=== PATIENT | male | born 1945 | race Caucasian/White ===

== ENCOUNTER 2018-02-20 20:28 | Emergency (ER) | payer MEDICARE, OTHER ==
[~2018-02-20] VITALS: Ht 180.3 cm; Wt 129.3 kg
--- OUTSIDE RECORDS SUMMARY | ~2018-02-20 | XMS | Clinical Summary ---
Demographics + + + | Address | [address] | | | [place] [address] | + + + | Home Phone | | + + + | Preferred Language | Unknown | + + + | Marital Status | | + + + | Jehovah'S Witness Affiliation | Unknown | + + + | Race | Unknown | + + + | Ethnic Group | Unknown | + + + Author + + + | Author | Located Within [facility] | | | and [place] | + + + | Organization | Located Within [facility] | | | and [place] | + + + | Address | Unknown | + + + | Phone | Unavailable | + + + Support + + +---------+ + | Name | Relationship | Address | Phone | + + +---------+ + | Gisela Steel | Unknown | | + + +---------+ + Care Team Providers + +------+ + | Care Ball Point Splitter Name | Role | Phone | + +------+ + | Morro Mcdaniel MD | PP | Unavailable | + +------+ + Allergies + + + + + + | Active Allergy | Reactions | Severity | Noted | Comments | | | | | Date | | + + + + + + | Sulfa Antibiotics | Swelling | Medium | 09/28/19 | | | | | | 11 | | + + + + + + Current Medications + + +--------+---------+------+------+-------+ | Prescription | Sig. | Disp. | Refills | Star | End | Statu | | | | | | t | Date | s | | | | | | Date | | | + + +--------+---------+------+------+-------+ | buPROPion | Take 150 mg by mouth | | | | | Activ | | (WELLBUTRIN SR) 200 | 2 times daily. | | | | | e | | MG 12 hr tablet | | | | | | | + + +--------+---------+------+------+-------+ | insulin glargine | Inject 80 Units | | | | | Activ | | (LANTUS) 100 | under the skin | | | | | e | | units/mL injection | nightly. | | | | | | + + +--------+---------+------+------+-------+ | nabumetone | Take 500 mg by mouth | | | | | Activ | | (RELAFEN) 500 mg | 2 times daily. | | | | | e | | tablet | | | | | | | + + +--------+---------+------+------+-------+ | NIFEdipine (ADALAT | Take 30 mg by mouth | | | | | Activ | | CC) 30 mg 24 hr | Daily. | | | | | e | | tablet | | | | | | | + + +--------+---------+------+------+-------+ | simvastatin | Take 40 mg by mouth | | | | | Activ | | (ZOCOR) 40 mg tablet | nightly. | | | | | e | + + +--------+---------+------+------+-------+ | glimepiride | Take 4 mg by mouth 2 | | | 01/28 | | Activ | | (AMARYL) 4 mg tablet | times daily. | | | 09/16 | | e | | | | | | 12 | | | + + +--------+---------+------+------+-------+ | potassium chloride | Take 10 mEq by mouth | | | 01/28 | | Activ | | SA (KLOR-CON M10) | Daily. | | | 09/16 | | e | | 10 MEQ tablet | | | | 12 | | | + + +--------+---------+------+------+-------+ | lisinopril | Take 40 mg by mouth | | | 01/28 | | Activ | | (PRINIVIL,ZESTRIL) | Daily. | | | /20 | | e | | 40 MG tablet | | | | 12 | | | + + +--------+---------+------+------+-------+ | furosemide (LASIX) | Take 40 mg by mouth | | | 01/28 | | Activ | | 20 mg tablet | Daily. | | | 4/20 | | e | | | | | | 12 | | | + + +--------+---------+------+------+-------+ | Lancets (ACCU-CHEK | 1 each by Other | 100 | 11 | 11/27 | | Activ | | MULTICLIX) MISC | route as needed. | each | | 08/16 | | e | | | | | | 14 | | | + + +--------+---------+------+------+-------+ | aspirin 81 mg EC | Take 81 mg by mouth | | | | | Activ | | tablet | Daily. | | | | | e | + + +--------+---------+------+------+-------+ | tamsulosin | Take 0.4 mg by mouth | | | | | Activ | | (FLOMAX) 0.4 mg CAPS | daily (after | | | | | e | | | breakfast). | | | | | | + + +--------+---------+------+------+-------+ | traMADol (ULTRAM) | Take 50 mg by mouth | | | | | Activ | | 50 mg tablet | every 8 hours as | | | | | e | | | needed for Pain. | | | | | | + + +--------+---------+------+------+-------+ | ONE TOUCH ULTRA | TEST three times a | | 1 | /2 | | Activ | | TEST strip | day | | | 12/16 | | e | | | | | | 17 | | | + + +--------+---------+------+------+-------+ | rivaroxaban | Take 1 tablet by | 30 | 5 | 02/0 | | Activ | | (XARELTO) 20 mg | mouth Daily. | tablet | | 6/20 | | e | | tablet | | | | 17 | | | + + +--------+---------+------+------+-------+ | carvedilol (COREG) | Take 1 tablet by | 180 | 1 | 03/0 | | Activ | | 3.125 mg tablet | mouth 2 times daily | tablet | | /20 | | e | | | (with breakfast & | | | 18 | | | | | dinner). | | | | | | + + +--------+---------+------+------+-------+ Active Problems + + + | Problem | Noted Date | + + + | Paroxysmal A-fib (HCC) | 09/23/2014 | + + + + + | Overview: Echocardiogram, 09/23/2014 shows mild left atrial | | dilatation, nrmal left ventricular size with moderate concentric | | left ventricular hypertrophy, left ventricular systolic function | | is preserved, LVEF is 50-55%, grade 1 left ventricular diastolic | | dysfunction, mild aortic root dilatation measuring 4.1 cm in | | diameter, mildly thickened trileaflet aortic valve with adequate | | opening,trace mitral valve regurgitation, mild tricuspid valve | | regurgitation, normal right-sided pressure, normal IVC with | | normal respiratory collapse. | + + + + + | Pyelonephritis | 05/17/2014 | + + + + + | Last Assessment & Plan: He arrived with pyuria, dysuria, | | fever, leukocytosis, and has SIRS related to pyelonephritis. | | Given his difficulty walking, and his fall, feel that he is an | | appropriate admission, and is not safe to return home. Continue | | to give IVF, ceftriaxone like home with PO soon if blood cultures | | negative at day 2. | + + + + + | Morbid obesity (HCC) | 05/17/2014 | + + + + + | Last Assessment & Plan: Needs to lose weight - has | | osteoarthritis, falls. | + + + + + | Alcoholism (HCC) | 05/17/2014 | + + + + + | Last Assessment & Plan: States he drinks a liter of wine | | daily, although denies any history of withdrawal. Will add | | librium today as he is feeling anxious while awaiting final blood | | cultures. | + + + + + | OTITIS MEDIA, SEROUS, CHRONIC | 10/08/2010 | + + + | MAXILLARY SINUSITIS | 09/27/2010 | + + + | HYPERLIPIDEMIA | | + + + | Hypertension, essential | | + + + + + | Last Assessment & Plan: Decrease lisinopril to 20 mg daily, | | give 30 mg nifedipine. | + + + +---+ | DIABETES, TYPE 2 | | + +---+ + + | Last Assessment & Plan: Continue glargine 20 units and | | sliding scale. Continue glimepiride, hold metformin and | | pioglitazone for now. Will be able to restart when SIRS improved | | if creatinine stable. 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 | + + + +---+ | NEPHRITIS IN OTHER DISEASES | | + +---+ | OSTEOARTHRITIS, GENERALIZED | | + +---+ | HYPOGONADISM | | + +---+ | Chest pain | | + +---+ + + | Overview: Nuclear stress test, 10/03/2014 shows regadenoson EKG | | is negative, normal Regadenoson Sestamibi myocardial perfusion | | study with a normal left ventricular size and wall thickness, | | preserved left ventricular systolic function, LVEF by gated SPECT | | 59 %, evidence of inferior wall soft tissue attenuation. | + + Immunizations + + + + | Name | Dates Previously Given | Next Due | + + + + | INFLUENZA 63 Y OR >, | 07/11/2017, 07/05/2016 | | | TRIVALENT HIGH-DOSE | | | + + + + | PNEUMOCOCCAL | 07/05/2016 | | | CONJUGATE 13-VALENT | | | | (PCV13) | | | + + + + Family History + + +------+ + | Medical History | Relation | Name | Comments | + + +------+ + | Cancer | Maternal | | | | | Grandmoth | | | | | er | | | + + +------+ + | Cancer | Mother | | | + + +------+ + + +--------+ + + | Relation | Name | Status | Comments | + +--------+ + + | Brother | Thomas | Alive | | + +--------+ + + | Father | | | | + +--------+ + + | Maternal Grandmother | | | | + +--------+ + + | Mother | | | | + +--------+ + + | Sister | Nishi | Alive | | + +--------+ + + Social History + + + +--------+ + | Tobacco Use | Types | Packs/Day | Years | Date | | | | | Used | | + + + +--------+ + | Former Smoker | Cigarettes | 0.5 | 10 | Quit: 05/30/2000 | + + + +--------+ + + +------+---+ + | Smokeless Tobacco: | Chew | | Quit: | | Former User | | | 05/30/19 | | | | | 05 | + +------+---+ + + + +---------+ + | Alcohol Use | Drinks/We | oz/Week | Comments | | | ek | | | + + +---------+ + | Yes | 0 | 168.0 | 2-3 liters of wine daily | | | Standard | | | | | drinks or | | | | | | | | | | equivalen | | | | | t 280 | | | | | Glasses | | | | | of wine | | | + + +---------+ + + + + | Sex Assigned at | Date Recorded | | | | + + + | Not on file | | + + + Last Filed Vital Signs + + + + | Vital Sign | Reading | Time Taken | + + + + | Blood Pressure | 150/96 | 07/11/20171320 PST | + + + + | Pulse | 63 | 07/11/20171320 PST | + + + + | Temperature | 36.2 C (97.2 F) | 07/20/20162102 PST | + + + + | Respiratory Rate | 18 | 07/11/20171320 PST | + + + + | Oxygen Saturation | 94% | 07/20/20162225 PST | + + + + | Inhaled Oxygen | - | - | | Concentration | | | + + + + | Weight | 111.8 kg (246 lb 7.6 | 07/11/20171320 PST | | | oz) | | + + + + | Height | 180.3 cm (5' 11") | 07/11/20171320 PST | + + + + | Body Mass Index | 34.38 | 07/11/2017 1321 PST | + + + + Plan of Treatment +--------+---------+ + + + | Date | Type | Specialty | Care Team | Description | +--------+---------+ + + + | 07/11/ | Office | | Mayra Song, | | | 2018 | Visit | | MD Guy Herring | | | | | | [place], | | | | | | [place] [address] | | | | | | [phone] | | | | | | | | +--------+---------+ + + + + + + + + | Health Maintenance | Due Date | Last Done | Comments | + + + + + | Diabetic Eye Exam | | | | | (Bi-Annually) | 2 | | | + + + + + | Diabetic Foot Exam | | | | | | 2 | | | + + + + + | Hemoglobin A1c Q3 | | | | | Months | 2 | | | + + + + + | Vaccine: | | | | | Dtap/Tdap/Td (1 - | 3 | | | | Tdap) | | | | + + + + + | Colorectal Cancer | | | | | Screening | 4 | | | | (Colonoscopy) | | | | + + + + + | Vaccine: Zoster (1 | | | | | of 2) | 4 | | | + + + + + | Vaccine: | | 07/05/2016 | | | Pneumococcal 65+ | 8 | | | | Low/Medium Risk (2 | | | | | of 2 - PPSV23) | | | | + + + + + | Vaccine: Influenza | | 07/11/2017, 07/05/2016 | | | (#1) | 8 | | | + + + + + Implants + +--------+--------+ +--------+--------+--------+ | Implanted | Type | Area | Manufacture | Device | Expira | Model | | | | | r | | tion | / | | | | | | Identi | Date | Serial | | | | | | fier | | / Lot | + +--------+--------+ +--------+--------+--------+ | Lens Ultrasert [id number] - | Generi | Right: | [employer] | | 05/29/ | [id number] | | [id number]: Qty: 1 on | c | Eye | - ALCN | | 2017 | .18.0D | | 02/16/2016 by Clara, | | | | | | | | Talita Montague MD | | | | | | /[id number] | | | | | | | | 199 | | | | | | | | 004 / | + +--------+--------+ +--------+--------+--------+ Results Not on filefrom Last 3 Months Insurance + +--------+ +--------+ +---------+ | Payer | Benefi | Subscriber | Type | Phone | Address | | | t Plan | ID | | | | | | / | | | | | | | Group | | | | | + +--------+ +--------+ +---------+ | MEDICARE | MEDICA | [id number] | Medica | [phone] | | | RE | | re | [phone] | | | | PART A | | | | | | | AND B | | | | | + +--------+ +--------+ +---------+ | UNITED COMM | UNITED | [id number] | Indemn | [phone] | | TRAVELERS | COM | | ity | [phone] | | | | TRAVEL | | | | | | | RS | | | | | | | MDCR | | | | | | | SUPPL | | | | | + +--------+ +--------+ +---------+ + +--------+ +--------+ + + | Guarantor Name | Accoun | Relation to | Date | Phone | Billing Address | | | t Type | Patient | of | | | | | | | | | | + +--------+ +--------+ + + | NIKITA STEEL | Person | Self | [birth year] | Work: | [address] | | | [place] | | [address] | +- | [place] [address] | | | [address]anner | | | [phone]: | | | | | | | | | | | | | | [phone]- | | | | | | | [phone] | | + +--------+ +--------+ + +
--- OUTSIDE RECORDS SUMMARY | ~2018-02-20 | XMS | Clinical Summary ---
Demographics + + + | Address | [address] | | | [place] [address] | + + + | Home Phone | | + + + | Preferred Language | Unknown | + + + | Marital Status | | + + + | Zoroastrian Affiliation | 1077 | + + + | Race | Unknown | + + + | Ethnic Group | Unknown | + + + Author + + + | Author | [facility] | + + + | Organization | [facility] | + + + | Address | Unknown | + + + | Phone | Unavailable | + + + Support + + + + + | Name | Relationship | Address | Phone | + + + + + | Gisela Zamora | MANNY | [address] | | | | | [place] [address] | | + + + + + Care Team Providers + +------+ + | Care Car Filler Name | Role | Phone | + +------+ + PP | Unavailable | + +------+ + Allergies Not on File Current Medications Not on file Active Problems Not on file Social History + +-------+ +--------+------+ | Tobacco Use | Types | Packs/Day | Years | Date | | | | | Used | | + +-------+ +--------+------+ | Never Assessed | | | | | + +-------+ +--------+------+ + + + | Sex Assigned at | Date Recorded | | | | + + + | Not on file | | + + + Plan of Treatment Not on file Results Not on filefrom Last 3 Months"
--- OUTSIDE RECORDS SUMMARY | ~2018-02-20 | XMS | Clinical Summary ---
Demographics + + + | Address | [address] | | | [place] [address] | + + + | Home Phone | | + + + | Preferred Language | Unknown | + + + | Marital Status | | + + + | Pentecostal Affiliation | Unknown | + + + | Race | Unknown | + + + | Ethnic Group | Unknown | + + + Author + + + | Author | [facility] | | | and [place] | + + + | Organization | [facility] | | | [...] Team Providers + +------+ + | Care Teaching Specialists Name | Role | Phone | + +------+ + | Morro Mcdaneil MD | PP | Unavailable | + [...] [place], | | | | | | [place] [address] | | | | | | [phone] | | | | | | | [...] | | 05/29/ | [id number] | | [id number]: Qty: 1 on | c | Eye | - ALCN | | 2017 | .18.0D | | 02/16/2016 by Clara, | | | | | | | | Talita Montague MD | | | | | | /[id number] | | | | | | | [...] +--------+ +---------+ | MEDICARE | MEDICA | [id number] | Medica | [phone] | | | | RE | | re | [phone] | | | | PART A | | | | | | | AND B | | | | | + +--------+ +--------+ +---------+ | UNITED COMM | UNITED | [id number] | Indemn | [phone] | | | TRAVELERS | COM | [...] | Self | [birth year] | Work: | [address] | | | [place] | | [address] | +- | [place] [address] | | | [address] | | | [phone]: | | | | | | | | | | | | | | +[address]- | | | | | | | [address] | | + +--------+ +--------+ + +
--- OUTSIDE RECORDS SUMMARY | ~2018-02-20 | XMS | Clinical Summary ---
Demographics + + + | Address | [address] | | | [place] [address] | + + + | Home Phone | | + + + | Preferred Language | Unknown | + + + | Marital Status | | + + + | Latter Day Affiliation | 1077 | + + + | Race | Unknown | + + + | Ethnic Group | Unknown | + + + Author + + + | Author | [facility] | + + + | Organization | [facility] | + + + | Address | Unknown | + + + | Phone | Unavailable | + + + Support + + + + + | Name | Relationship | Address | Phone | + + + + + | Gisela Zamora | MANNY | [address] | | | | | [place] [address] | | + + + + + Care Team Providers + +------+ + | Care Assembler Fluorescent Lights Name | Role | Phone | + [...]
[~2018-02-20 20:28] MED LIST: ACTOS45 MG PO; ANDROGEL1.25 GM TD; BUPROPION HCL150 M2 PO; FUROSEMIDE20 MG PO; GLIMEPIRIDE4 MG PO; HYDROCHLOROTHIA25 MG PO; LANTUS SOL100 UNIT/1 SUB-Q; LISINOPRIL40 MG PO; METFORMIN HCL850 MG PO; METOPROLOL SUCC25 MG PO; NABUMETONE500 MG PO; NALTREXONE HCL50 MG PO; NIFEDICAL XL30 MG PO; NIFEDIPINE ER90 M1 PO; POTASSIUM CHLO10 MEQ PO; SIMVASTATIN40 MG PO; TOPAMAX50 MG PO; TRIAMCINOLONE A15 G1 TOP; ULTRAM50 MG PO; VIAGRA100 MG PO; VYTORIN 10-201 EACH PO
[2018-02-20] MEDS ORDERED: LANTUS SOL100 UNIT/1 SUB-Q (22:17)
--- NOTE | 2018-02-21 16:48 | EKG ---
[facility] [address] [place], [place] [address] Signed Atrial fibrillation with rapid ventricular response Septal infarct , age undetermined Abnormal ECG No previous ECGs available Confirmed by TELMA FERNANDES MD ([id number]) on 02/21/2018 4:48:35 PM Electronically Signed By: TELMA FERNANDES MD 02/21/18 1648 PATIENT NAME: MARIJA STEEL Electrocardiogram DATE OF : 41 PHYSICIAN: TELMA FERNANDES MD REPORT #: [id number] REPORT IS CONFIDENTIAL AND NOT TO BE RELEASED WITHOUT AUTHORIZATION
== END 2018-02-20 22:31 | disposition home or self-care (01) ==
LOC: ED 20:28
DX: E11.65 Type 2 diabetes mellitus with hyperglycemia (principal); I48.91 Unspecified atrial fibrillation; I10 Essential (primary) hypertension; E78.00 Pure hypercholesterolemia, unspecified; E66.9 Obesity, unspecified; Z88.2 Allergy status to sulfonamides; Z79.899 Other long term (current) drug therapy; Z79.84 Long term (current) use of oral hypoglycemic drugs; Z79.4 Long term (current) use of insulin
CPT/HCPCS: 93005; 93010; 96372; 99283

== ENCOUNTER 2018-07-28 17:59 | Inpatient (IN) | payer MEDICARE, OTHER ==
[~2018-07-28] VITALS: Ht 180.3 cm; Wt 86.2 kg
[~2018-07-28 17:59] MED LIST changes: -BUPROPION HCL150 M2 PO; +BUPROPION HCL200 MG PO; -FUROSEMIDE20 MG PO
--- OUTSIDE RECORDS SUMMARY | 2018-07-28 18:02 | XMS ---
PreManage Notification: MARIJA STEEL Security [employer] House[employer] Events No recent Security Events currently on file CRITERIA MET - PDMP CARE PROVIDERS KENDRICK CELESTE J Internal Medicine 04/18/2018-Current PHONE: Unknown Pavan has no Care Guidelines for this patient. Bhaskar VISIT COUNT (12 MO.) 3 [facility] TOTAL 3 NOTE: Visits indicate total known visits. ED/UCC VISIT TRACKING (12 MO.) 07/28/2018 18:00 [facility] [place] TYPE: Emergency COMPLAINT: - BLOOD SUGAR PROBLEM 04/14/2018 17:42 [facility] [place] TYPE: Emergency COMPLAINT: - HIGH BLOOD SUGAR DIAGNOSES: - extermination supervisor (current) use of insulin - Type 2 diabetes mellitus without complications - Essential (primary) hypertension - Allergy status to sulfonamides status - Pure hypercholesterolemia, unspecified - Other terminal superintendent (current) drug therapy - Unspecified atrial fibrillation - Personal history of nicotine dependence 02/20/2018 20:28 [facility] [place] TYPE: Emergency COMPLAINT: - BLOOD SUGAR PROBLEM DIAGNOSES: - Other jail (current) drug therapy - Obesity, unspecified - half-way (current) use of insulin - Unspecified atrial fibrillation - half-way (current) use of oral hypoglycemic drugs - Allergy status to sulfonamides status - Pure hypercholesterolemia, unspecified - Type 2 diabetes mellitus with hyperglycemia - Essential (primary) hypertension INPATIENT VISIT TRACKING (12 MO.) No inpatient visits to display in this time frame [email or web address]
--- NOTE | 2018-07-28 20:59 | EKG ---
[facility] [address] [place] [address] Signed Poor data quality, interpretation may be adversely affected Undetermined rhythm Left axis deviation Nonspecific T wave abnormality Abnormal ECG When compared with ECG of 20-FEB-2018 21:52, Current undetermined rhythm precludes rhythm comparison, needs review Criteria for Septal infarct are no longer present Confirmed by LUKAS ANGULO MD ([id number]) on 07/28/2018 8:58:58 PM Electronically Signed By: LUKAS ANGULO MD 07/28/18 2059 PATIENT NAME: MARIJA STEEL Electrocardiogram DATE OF : 41 PHYSICIAN: LUKAS ANGULO MD REPORT #: [id number] REPORT IS CONFIDENTIAL AND NOT TO BE RELEASED WITHOUT AUTHORIZATION
--- NOTE | 2018-07-28 21:00 | NUR ---
PT ARRIVED TO UNIT VIA STRETCHER FROM ED, FAMILY AT BEDSIDE. PT ASSISTED TO BED. PT DISORIENTED TO TIME AND EVENT, RESPONDING APPROPRIATELY. LUNGS CLEAR THROUGHOUT ON ROOM AIR. HR 80'S AND NOTED TO BE IRREGULAR. +3 EDEMA TO BLE, FAMILY STATES NO EDEMA AT BASELINE AND WORSENING OF LAST DAY. CMS INTACT. ABD DISTENDED, STATES NORMAL, NON TENDER, BOWEL TONES HYPERACTIVE X4, DENIES NAUSEA. DENIES PAIN.
--- NOTE | 2018-07-28 21:56 | NUR ---
INSULIN, REGULAR HUMAN DRIP 100UNITS IN 1ML MIXED INTO 100ML NS BAG WITH TELE-PHARMACIST TJ
--- NOTE | 2018-07-28 22:00 | NUR ---
CBG 430, INSULIN GTT AT 7.2 UNITS/HR. EDUCATION PROVIDED ON BLOOD SUGAR MANAGEMENT, MEDICATION, SAFETY, AND ROOM ORIENTATION, VERBALIZED UNDERSTANDING. DENEIS OTHER NEEDS. CALL LIGHT WITHIN REACH.
--- NOTE | 2018-07-28 23:14 | NUR ---
PT RESTING COMFORTABLY IN BED, AWAKENS EASILY. CBG 380. INSULIN GTT TITRATED TO 6 UNITS/HR.
--- NOTE | 2018-07-29 00:13 | NUR ---
CBG 312, INSULIN GTT TITRATED TO 5 UNITS/HR. PT AWAKENS EASILY. NO ACUTE CHANGES TO ASSESSMENT.
--- NOTE | 2018-07-29 01:07 | NUR ---
CBG 302, INSULIN GTT TO REMAIN AT 5 UNITS/HR.
--- NOTE | 2018-07-29 02:18 | NUR ---
CBG 239, INSULIN GTT TITRATED TO 3.4 UNITS/HRS. PT YELLING OUT. RN IN ROOM, PT FOUND TO HAVE PULLED IV OUT, CATH INTACT. FLUIDS SWITCHED TO RFA IV SITE. ADVISED PT TO NOT PULL AT IV SITES. WILL CONTINUE TO MONITOR.
--- NOTE | 2018-07-29 02:30 | NUR ---
PT INCONTINENT OF URINE, SUSAN CARE PROVIDED, SUSAN AREA REDDENED AND ODOROUS. ATTEND IN PLACE.
--- NOTE | 2018-07-29 03:15 | NUR ---
CBG 211, INSULIN GTT TITATED TO 2.8 UNITS/HR.
--- NOTE | 2018-07-29 04:00 | NUR ---
CBG 186, INSULIN GTT TITRATED TO 2.4 UNITS/HR. D5 1/2NS STARTED AT THIS TIME AND INFUSING AT 125 ML/HR. WILL CONTINUE TO MONITOR.
--- NOTE | 2018-07-29 05:00 | NUR ---
CBG 204, INSULIN GTT TITRATED TO 4.2 UNITS/HR.
--- NOTE | 2018-07-29 06:18 | NUR ---
CBG 210, INSULIN GTT TO REMAIN AT 4.2 UNITS/HR.
--- NOTE | 2018-07-29 06:41 | NUR ---
PT REMAINS ON INSULIN GTT, CURRENTLY AT 4.2 UNITS/HR. REMAINS NPO. DENIES NAUSEA. SINUS RHYTHM. LUNGS CLEAR THROUGHOUT, HX SLEEP APNEA, TOLERATING ROOM AIR. ABD MILDLY DISNTENDED, BOWEL TONES ACTIVE X4, DENIES NAUSEA. +3 EDEMA TO BLE REMAINS UNCHANGED. PT INCONTINENT OF URINE AT TIMES, ATTEND IN PLACE, GROIN REDDENED. PT DISORIENTED TO TIME AND EVENT, REORIENT NEEDED. PT EMOTIONAL AT TIMES. PT TEARFUL WHEN DRAWING LABS, EASILY CALMED WITH VERBAL REASSURANCE.
--- NOTE | 2018-07-29 07:30 | NUR ---
REPORT RECIEVED. DR. ANGULO HERE TO SEE PATIENT. ORDERS RECIEVED.
--- NOTE | 2018-07-29 08:00 | NUR ---
ASSESSMENT DONE. C/O COCCYX PAIN, ACCORDING TO THE PATIENT HAS BEEN HAVING THIS PAIN FOR APPROX ONE WEEK. REMIANS ON INSULIN GTT. AND Q ONE HOUR ACCUCHECKS. PATIENT IS ASKING FOR FOOD. EXPLAINED TO PATIENT AND PATIENT TO REASON FOR CLEAR LIQUIDS AT THIS TIME. PATIENT IS FORGETFUL, REPEATING SAME QUESTIONS. IS TO HAVE A CT SCAN OF ABD TODAY.
--- NOTE | 2018-07-29 08:40 | NUR ---
TO CT VIA BED. LINEN CHANGED WHILE IN CT.
--- NOTE | 2018-07-29 09:00 | NUR ---
TOLERATED CT WELL. RETURN TO ROOM 127. SITTING UP IN BED FOR CLEAR LIQUIDS.
--- NOTE | 2018-07-29 10:00 | NUR ---
IS ASLEEP ON THE RIGHT SIDE.
--- NOTE | 2018-07-29 10:19 | NUR ---
ACCUCHECK-223. INSULIN GTT INCREASED TO 6.8 UNITS HR.
--- NOTE | 2018-07-29 12:00 | NUR ---
ASSESSMENT UNCHANGED. PATIENT STATES HE FEELS BETTER. INC OF URINE. REMAINS IN ROOM. CONTINUE TO C/O COCCYX DISCOMFORT.
--- NOTE | 2018-07-29 12:40 | NUR ---
DR. ANGULO UPDATED ON PATIENT STATUS. IS AWARE OF RATE OF INSULIN GTT WHICH IS CURRENTLY AT 5.6 UNITS HR, IS ALSO AWARE OF K+ LEVEL OF 3.3. PATIENT CONTINUES TO SIT UP IN BED EATING LUNCH, DENIES NAUSEA.
--- NOTE | 2018-07-29 13:00 | NUR ---
TOOK 100 % OF LUNCH. ACCUCHECK-346. INSULIN GTT TO 15 UNITS/HR.
--- NOTE | 2018-07-29 14:15 | NUR ---
TOOK 100 % OF LUNCH, PATIENT WANTS MORE FOOD, REQUESTING ANOTHER LUNCH.
--- NOTE | 2018-07-29 15:10 | NUR ---
TOOK 100% OF SECOND LUNCH. PATIENT GETS VERY FRUSTRATED AT TIMES. INSULIN GTT REMAINS REMAINS AT 15 UNITS HR. WILL REPEAT ACCUCHECK WHEN GET PATIENT REPOSITIONED. INC OF URINE.
--- NOTE | 2018-07-29 15:30 | NUR ---
INSULIN GTT DECREASED TO 8.5 UNITS/HR.
--- NOTE | 2018-07-29 16:00 | NUR ---
ACCUCHECK-246. INSULIN GTT REMAINS AT 8.5 UNITS/HR. ASSESSMENT UNCHANGED.
--- NOTE | 2018-07-29 17:00 | NUR ---
INSULIN GTT CONTINUES AT 8.5 UNITS/HR.
--- NOTE | 2018-07-29 17:40 | NUR ---
AVELLYN DRESSING APPLIED RIGHT BUTTOCKS .
--- NOTE | 2018-07-29 18:46 | NUR ---
RESTFUL AT THIS TIME. REMAINS AT IN ROOM.
--- NOTE | 2018-07-29 19:27 | NUR ---
REPORT TO NEXT SHIFT. INSULIN GTT TO 12.6 UNITS.
--- NOTE | 2018-07-29 19:30 | NUR ---
REPORT RC'D [facility] DAY SHIFT NURSE JIM. REPORTS PT REMAINS ON INSULIN GTT, LANTUS TO START AT 2100, TOLERATING ADA DIET, NO ACUTE CHANGES TO ASSESSMENT. INSULIN GTT CURRENTLY AT 12.6 UNITS/HR. AT BEDSIDE.
--- NOTE | 2018-07-29 20:00 | NUR ---
CBG 293, INSULIN GTT TITRATED TO 17.5 UNITS/HR, D5 1/2NS @125 MLS/HR, IV SITE PATENT AND WNL. PT REMAINS DISORIENTED TO TIME BUT IMPROVED EVENT RECALL, RESPONDING APPROPRAITELY. SINUS RHYTHM ON MNITOR. LUNGS CLEAR THROUGHOUT ON ROOM AIR. ABD DISTENDED BUT PT STATES NORMAL, BOWEL TONES ACTIVE X4, DENIES NAUSEA, TOLERATING ADA DIET. REMAINS INCONTINENT, SUSAN AREA REDDENED, SUSAN CARE TO BE COMPLETED. EDEMA TO BLE IMPROVING, +2 TO BLE. DENIES PAIN. DENIES N/T. DENIES OTHER NEEDS. UPDATED PLAN OF CARE. EDUCATION PROVIDED ON MEDICATION, SAFETY, AND FALL PREVENTION, PT AND VERBALIZED UNDERSTANDING AND AGREEABLE.
--- NOTE | 2018-07-29 21:00 | NUR ---
CBG 265, INSULIN GTT TITRATED TO 14.7 UNITS/HR. PT NOTED TO HAVE PULLED OUT IV, NEW SITE PLACED, COBAN WRAP APPLIED, EDUCATED ON LEANING IV SITE INTACT. SUSAN CARE COMPLETED. LINENS CHANGED. NEW GOWN APPLIED. PM CARE COMPLETED. BLE ELEVATED.
--- NOTE | 2018-07-29 22:00 | NUR ---
CBG 265, INSULIN GTT TO REMAIN AT 14.7 UNITS AN HOUR.
--- NOTE | 2018-07-29 23:19 | NUR ---
CBG 270, INSULIN GTT TITRATED TO 16.8 UNITS/HR. ASSESSED IV SITE, PATENT, INTACT.
--- NOTE | 2018-07-30 | NUR ---
NO ACUTE CHANGES TO ASSESSMENT. CBG 252, INSULIN GTT TO REMAIN AT 16.8 UNITS/HR. IV SITE ASSESSED, INTACT AND PATENT. PT AWAKENS EASILY AND ABLE TO FOLLOW COMMANDS. 2L NC APPLIED FOR OXYGEN DESAT INTO 80'S WHILE SLEEPING, KNOWN HX OF SLEEP APNEA W/O CPAP USE AT HOME. WILL CONTINUE TO MONTIOR
--- NOTE | 2018-07-30 00:34 | NUR ---
NOISES HEARD COMING FROM PT ROOM, RN IN ROOM TO ASSESS. PT RESTLESS AND C/O OF BACK DISCOMFORT. PT REPOSITIONED TO RIGHT SIDE, STATES IMPROVEMENT AND DENIES PAIN.
--- NOTE | 2018-07-30 01:00 | NUR ---
CBG 222, INSULIN GTT TITRATED TO 13.6 UNITS/H.
--- NOTE | 2018-07-30 02:00 | NUR ---
CBG 191, INSULIN GTT TITRATED TO 11.2 UNITS/HR.
--- NOTE | 2018-07-30 02:30 | NUR ---
PT CALLLING OUT AND CURSING, RN IN ROOM TO ASSESS PT. PT C/O HIP PAIN 10/06, REPOSITIONED, AND 650 MG TYLENOL GIVEN.
--- NOTE | 2018-07-30 03:10 | NUR ---
CBG 138, INSULIN GTT TITRATED TO 5.6 UNITS/HR. PT RESTING COMFORTABLY IN BED.
--- NOTE | 2018-07-30 04:00 | NUR ---
CBG 99, INSULIN GTT STOPPED AT THIS TIME. D5 1/2NS INFUSING AT 125 ML/HR.
--- NOTE | 2018-07-30 04:30 | NUR ---
PT HAD EXTRA LARGE INCONTINENT VOID. PT CONTINUES TO BE RESTLESS IN BED. SUSAN CARE, SKIN CARE, ATTEND PLACED, AND LINEN CHANGED. PT ASSISED TO CHAIR VIA LIFT, TOLERATED WELL. CHAIR ALARM ON. PT STATES IMPROVEMENT IN COMFORT.
--- NOTE | 2018-07-30 05:00 | NUR ---
CBG 95, INSULIN GTT TO REMAIN OFF.
--- NOTE | 2018-07-30 06:00 | NUR ---
CBG 129, INSULIN GTT INFUSING AT 1.4 UNITS/HR.
--- NOTE | 2018-07-30 07:01 | NUR ---
CBG 149, INSULIN GTT TITRATED TO 1.8 UNITS/HR. DISCUSSED MEDICAIONS WITH PT AND . STATES PT TAKES "SLEEPING PILLS," PREVIOUSLY STATED PT TAKES TRAZODONE, WHEN REASSESSED PT'S STATES SHE'S UNSURE OF NAME BUT HE TAKES "SLEEPING PILLS AND PILLS FOR HIS MOOD." ASSESSED PAIN MEDICATION USE, STATES "HE TAKES ALEVE, REASSESSED IF PT TAKES TRAMADOL, PT AND STATES "YES." PT ASKED IF "HE IS GETTING HIS MOOD PILLS, HE'S GETTING GRUMPY." ADVISED MEDICATION FOLLOW UP WILL BE COMPLETED. INFORMED DR. ANGULO PT AND FAMILY INQUIRING MEDICATIONS, WILL FOLLOW UP.
--- NOTE | 2018-07-30 07:30 | NUR ---
REPORT RECIEVED. PATIENT IS SITTING IN CHAIR. IS IN ROOM. IVF/INSULIN GTT PATENT.
--- NOTE | 2018-07-30 07:50 | NUR ---
ROUTINE MEDICATIONS GIVEN WHILE SITTING UP IN CHAIR.
--- NOTE | 2018-07-30 08:00 | NUR ---
ACCUCHECK 167 , REG INSULIN 1 UNIT SQ GIVEN. IVF AND INSULIN GTT DC'D PER ORDERS.
--- NOTE | 2018-07-30 08:30 | NUR ---
TOOK BREAKFAST WELL. ASSISTED BACK TO BED USING WALKER. AM CARES GIVEN.
--- NOTE | 2018-07-30 09:19 | NUR ---
IN BED RESTINGON LEFT SIDE.
--- NOTE | 2018-07-30 12:00 | NUR ---
REPORT TO MEDICAL FLOOR.
--- NOTE | 2018-07-30 12:30 | NUR ---
TO MEDICAL FLOOR VIA CHAIR.
--- NOTE | 2018-07-30 12:47 | NUR ---
1245: PT TO ROOM 120 TRANSFERED FROM CCU. REPORT RECEIVED FROM JIM OCHOA. MARIJA STATES HE IS COMFORTABLE AT THIS TIME. PT HELPED INTO THE BED AND GIVEN A WARM BLANKET. BED ALARM TURNED ON.
--- NOTE | 2018-07-30 13:14 | NUR ---
PT WAS INCONT OF URINE AND HE WAS CLEANED AND CHANGED AT THIS TIME. THE ALLEVYN ON HIS LEFT BUTTOX ROLLED UP AND IT WAS CHANGED AT THIS TIME.
--- NOTE | 2018-07-30 13:34 | NUR ---
Pt sleeping at this time. His call light is within reach, bed alarm is on and his door is open to allow staff to keep an eye on him. Pt had been instucted proir to his nap to call before attempting to get up.
--- NOTE | 2018-07-30 14:04 | NUR ---
Pt continues sleeping at this time, bed alarm reamins on.
--- NOTE | 2018-07-30 14:12 | NUR ---
PT ATTEMPTED TO GET OUT OF BED WITHOUT HELP. WHEN I ARRIVED AT THE BEDSIDE HE STATES HE NEEDS TO VOID. PT HELPED WITH A URINAL. PT NOW RESTING COMFORTABLY IN BED.
--- NOTE | 2018-07-30 14:43 | NUR ---
PT AWOKE AND YELLED "SOMEONE HELP ME". HE STATES HE NEEDS TURNED IN BED. WHILE TURNING HIM IT IS NOTED THAT HE WAS INCONT OF UNIRE. PT CLEANED AND CHANGED. PT YELLED TO STOP AND TO LEAVE HIM ALONE. HE WAS INFORMED TO WHY HE IS BEING CLEANED AND HE CALMED DOWN AND ALLOWED US TO CLEAN HIM.
--- NOTE | 2018-07-30 14:55 | NUR ---
Pt's to the room and is visiting with the pt at this time.
--- NOTE | 2018-07-30 15:58 | NUR ---
Pt has been a one on one since he had tried to get out of bed shortly after having arrived.
--- NOTE | 2018-07-30 16:29 | NUR ---
PRE-DINNER ACCU-CHECK WAS 427. CALLED DR ANGULO, WHO GAVE NO NEW ORDERS JUST GIVE THE ORDERED 11 UNITS.
--- NOTE | 2018-07-30 17:58 | NUR ---
PT REMAINS IMPULSIVE AND REQUIRES 1:1 FOR SAFETY. PT NOT COMPLIANT WITH CARES, YELLS AND STRIKES OUT WITH CHANGES, FREQUENT SMALL VOIDS. DINNER ACCUCHECK WAS 427, NOTIFIED AND 11 UNITS GIVEN. HAS CRUTCHES IN ROOM, BUT IS NOT SAFE TO USE. BED ALARM/CHAIR ALARM IN PLACE. NEW ALLYVENT ON LEFT BUTTOCK.
--- NOTE | 2018-07-30 21:32 | NUR ---
PRIMARY NURSE IS AWARE OF RE TEMP.
--- NOTE | 2018-07-30 21:54 | NUR ---
PT RESTING IN BED WITH EYES CLOSED. WAKES EASILY TO VOICE. PT DISORIENTED TO PLACE AND EVENT. PT DENIES PAIN, NAUSEA, OR SOB. CNG FOUND TO BE 489. MD NOTIFIED, SCHEDULED AND ONE TIME INSULIN DOSE ADMINISTERED. PT TOLERATED WELL. PT ASSISTED TO USE THE URINAL PER HIS REQUEST. TOLERATED WELL. EDEMA PRESENT TO BILATERAL LOWER EXTREMITIES 1-2+ PITTING. PT DENIES FURTHER NEEDS AT THIS TIME. SLEEPING AT BEDSIDE. BED ALARM ACTIVE, ROOM IN VIEW OF RN STATION.
--- NOTE | 2018-07-31 01:15 | NUR ---
PT RESTING IN BED WITH EYES CLOSED, SNORING AUDIBLY FROM DOORWAY. PT SLEEPING ON COUCH IN ROOM. PT DOES NOT WAKE WHILE PROFESSOR OF BUSINESS ADMINISTRATION IN DOORWAY. CALL LIGHT WITHIN REACH. ROOM IN VIEW OF RN STATION.
--- NOTE | 2018-07-31 06:05 | NUR ---
PT ASSESSMENT COMPLETE. PT CONTINUES TO BE ORIENTED TO SELF ONLY. PT REQUESTS JUICE. REMINDED REGARDING DIET ORDER. ASSESSMENT OTHERWISE UNCHANGED FROM PREVIOUS. PT DENIES FURTHER NEEDS. SLEEPING AT BEDSIDE. CALL LIGHT WITHIN REACH. ROOM IN VIEW OF RN STATION WITH CURTAIN OPEN.
--- NOTE | 2018-07-31 07:10 | NUR ---
RECIEVED BEDSIDE REPORT FROM DON JAY. PT SLEEPING SOUNDLY, SLEEPING ON COUCH. BOTH SLEPT ALL NIGHT. NO 1:1 NEEDED OVERNIGHT. PT IS VERY DEMANDING.
--- NOTE | 2018-07-31 07:44 | NUR ---
CALLED DR ANGULO ABOUT MORNING BLOOD SUGAR OF 408. DR ANGULO WOULD LIKE TO GIVE THE SCHEDULED 11 UNITS WITH NO ADDITONAL. PT IS UP IN CHAIR, HEAVY 3 PERSON ASSIST. BREAKFAST IS ORDERED.
--- NOTE | 2018-07-31 07:59 | NUR ---
CRITICAL LAB VALUE FOR GLUCOSE OF 520 RECIEVED FROM BERENICE AT 0752. CALLED DR ANGULO AT 0753 OF [facility].
--- NOTE | 2018-07-31 08:23 | NUR ---
PT UP IN CHAIR FOR BREAKFAST. PT VERY DEMANDING AND UNWILLING TO HELP HIMSELF. RN ENCOURAGED PT TO TAKE ACTIVE PART OF HIS CARE, HOLDING THE PHONE HIMSELF, ADJUSTING HIS BLANKENT, HOLDING HIS OWN WATER CUP.
--- NOTE | 2018-07-31 08:40 | NUR ---
PATIENT UP TO CHAIR FROM BED, 2PA FWW. FAMILY IN ROOM. DEPENDS CHAGED. CALL LIGHT IN REACH. NO FURTHER NEEDS AT THIS TIME.
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
[2018-07-31] MEDS ORDERED: TAMSULOSIN HCL0.4 MG PO (10:28)
[2018-07-31] MEDS ORDERED: CARVEDILOL3.125 MG PO (10:29)
[2018-07-31] MEDS ORDERED: VICTOZA 3-0.6 MG/0.1 SUB-Q (10:31)
[2018-07-31] MEDS ORDERED: TRAMADOL HCL50 MG PO (10:34)
[2018-07-31] MEDS ORDERED: ONE TOUCH ULTR1 EACH MISC (10:40)
--- NOTE | 2018-07-31 10:47 | NUR ---
PT WORKED WITH PHYSICAL THERAPY, AMBULATED IN CHAIDEZ. PT IS VERY DEMANDING WITH CARES.
--- NOTE | 2018-07-31 10:55 | NUR ---
PATIENT IN BED IN ROOM. DEPENDS CHANGED. CALL LIGHT IN REACH. NO FURTHER NEEDS AT THIS TIME.
--- NOTE | 2018-07-31 11:58 | NUR ---
PT OFF FLOOR TO CT SCAN.
--- NOTE | 2018-07-31 13:39 | NUR ---
FAMILY MEMBERS HAVE QUESTIONS ABOUT A1C VALUES AND CURRENT BLOOD SUGAR VALUES. RN ANSWERED QUESTIONS. PT C/O PAIN IN BOTTOM, WILL LOOK FOR A "DONUT" PILLOW OR PLACE PILLOW ON CHAIR.
--- NOTE | 2018-07-31 13:44 | NUR ---
PATIENT UP FROM CHAIR TO BED, 2PA FWW. FRESH WATER GIVEN. CALL LIGHT IN REACH. NO FURTHER NEEDS AT THIS TIME.
--- NOTE | 2018-07-31 14:33 | NUR ---
MINDI DOLL IS IN PT ROOM DIABETIC EDUCATION.
--- NOTE | 2018-07-31 15:09 | NUR ---
IN ROOM. PATIENT WATCHING TV, DOZING OFF. [place] SO A FAIR AMOUNT OF TIME GOES BY BEFORE THEY GO GROCERY SHOPPING. PATIENT STATES HE HAS NEVER SEEN A DIETITIAN BEFORE. SAID SHE THINKS THEY ARE EATING PRETTY GOOD, THOUGH SHE LEARNED A LOT FROM WHAT I DISCUSSED WITH THEM. PATIENT DRINKS 2 CUPS COFFEE WITH VANILLA CREAMER IN THE MORNING. HAS BEEN EATING RAISIN BRAN FOR BREAKFAST. I DISCUSSED KEEPING CARBOHYDRATES TO 60 GRAMS PER MEAL, AND RAISIN BRAN WILL ADD UP FAST IF NOT CAREFUL WITH THE AMOUNT. I EXPLAINED 1 CUP PORTION SIZE FOR THE RAISIN BRAN, PASTA OR RICE, WHICH IS THE SIZE OF MY FIST. THEN I EXPLAINED THE AMOUNT OF CARBS IN EACH OF THESE. I ALSO REMINDED THEM ABOUT THE BALANCED PLATE. WHEN I ASKED THE PATIENT TO NAME 3 CARBOHYDRATE FOODS, HE SAID BEANS, PEAS, AND PASTA. ADMITS THEY CAN DO BETTER WITH FOOD CHOICES. HANDOUTS PROVIDED: HEALTHY PLATE, HEALTHY DIABETIC SNACK LIST, GROCERY LIST, CARB OUTLINE FOR MEALS AND SNACKS, LOWER SUGAR/HIGHER FIBER CEREAL LIST. MY NAME AND OFFICE # PROVIDED IN CASE PATIENT NEEDS MORE DIET EDUCATION IN THE FUTURE. APPRECIATED THE INFO. WILL REMAIN AVAILABLE.
--- NOTE | 2018-07-31 17:00 | NUR ---
PT CONTINUES TO SCREAM DURING CARES. ATTEMTS TO ASSIST IN CALMING HIM DOWN.
--- NOTE | 2018-07-31 17:48 | NUR ---
PATIENT IN BED WATCHING TV. DEPENDS CHANGED. CALL LIGHT IN REACH. NO FURTHER NEEDS AT THIS TIME.
--- NOTE | 2018-07-31 19:10 | NUR ---
BEDSIDE REPORT RECEIVED FROM OFFGOING RN. PT RESTING IN BED AWAKE. AT BEDSIDE. NEEDS DENIED AT THIS TIME. CALL LIGHT IN REACH. BEDALARM ACTIVE. ROOM IN VIEW OF RN STATION.
--- NOTE | 2018-07-31 22:00 | NUR ---
NOTIFIED OF ELEVATED BLOOD SUGAR. INSULIN ADMINISTERED ORDERED.
--- NOTE | 2018-07-31 22:14 | NUR ---
PT ASSESSMENT COMPLETE. PT DENIES PAIN, NAUSEA, OR SOB. PT WITH VARIOUS SCRATCHES, BRUISING OVER BODY. 1+ PITTING EDEMA PRESENT TO BLE'S. ATTENDS IN PLACE FOR INCONTINENCE. PT REQUESTS JUICE TO DRINK. DIET EDUCATION AND DIABETES EDUCATION PROVIDED. PT DENIES FURTHER NEEDS AT THIS TIME. BED ALARM ACTIVE. ROOM IN VIEW OF RN STATION. CALL LIGHT WITHIN REACH.
--- NOTE | 2018-08-01 00:30 | NUR ---
PT UTILIZES CALL LIGHT FOR ASSISTANCE SCOOTING UP IN BED. PT DENIES FURTHER NEEDS AT THIS TIME. CALL LIGHT INR EACH. ROOM IN VIEW OF RN STATION WITH CURTAIN OPEN. BED ALARM ACTIVE.
--- NOTE | 2018-08-01 03:59 | NUR ---
PT ASSESSMENT COMPLETE. PT DENIES PAIN, NAUSEA, OR SOB. ASSESSMENT UNCHANGED FROM PREVIOUS. PT ATTENDS CHANGED. PT TOLERATED WELL. PT DENIES FURTHER NEEDS AT THIS TIME. CALL LIGHT IN REACH. BED ALARM ACTIVE. ROOM IN VIEW OF RN STATION.
--- NOTE | 2018-08-01 07:27 | NUR ---
BEDSIDE REPORT...PT RESTING IN BED RR EVEN 16 BPM NO DISTRESS NOTED.
--- NOTE | 2018-08-01 08:57 | NUR ---
PT ALERT, ASSESSMENT COMPLETE, PT ORIETNED TO PLACE. NO COMPLAINTS AT THIS TIME
--- NOTE | 2018-08-01 09:31 | NUR ---
ASKED BY STAFF TO CALL PATIENTS ZACH [phone], WHO CALLED WITH QUESTIONS REGARDING DISCHARGE. SPOKE WITH ZACH BY PHONE VIA CONFERENCE WITH SRI MARTIN RN. ZACH STATED SHE IS ON HER WAY INTO THE HOSPITAL AND SHE HAS CONCERNS SHE IS UNSURE WHAT IS GOING ON AND THAT SHE WANTED TO MAKE SURE THAT WE KNOW HER JUST STOPPED TAKING HIS MEDICATIONS RECENTLY AND THAT HE TAKES HIMSELF TO THE BATHROOM AND SHE STATES SHE DID NOT KNOW ABOUT THE SORES ON HIS SKIN. SHE WAS WORRIED THAT "PEOPLE THERE MIGHT THINK I'M NOT TAKING GOOD CARE OF HIM". I ASSURRED HER WE ARE ONLY WORKING ON HOW TO GET HIM BACK TO [place] SHE AND HE WISHES TO GO HOME. DISCUSSED WITH HER THAT DR ANGULO WILL BE SEEING HIM TODAY AND SHE HAS UPDATES ON TESTING TO SHARE WITH FAMILY. SHE SEEMED RELEAVED REGARDING THIS, SHE DID STATE SHE DIDN'T GET TO TALK WITH DR ANGULO YESTERDAY AFTERNOON SHE WISHED. AGAIN I ASSURRED HER SHE WILL TODAY IF SHE COMES IN AND STAYS WITH PATIENT. ALSO DISCUSSED THAT SRI OCHOA WILL WORK WITH HER TO MAKE SURE THE DISCHARGE PLAN IS THEY WANT, AND THAT THEY UNDERSTAND ALL THAT HAS HAPPENED, ALONG WITH PLAN FOR TRANSITION TO NEXT LEVEL OF CARE. SHE STATED SHE WAS RELIEVED TO HAVE SOME GUIDENCE. AFTER THIS RECEIVED A CALL TRANSFER OF PATIENTS DAUGHTER JEREMY MCCARTY. SHE STATES HER MOTHER (ZACH) IS "NOT THINKING STRAIGHT" AND SHE WANTS TO BE PRESENT FOR INFORMATION TODAY. SHE STATES SHE IS COMING TO HOSPITAL INSTEAD OF GOING TO WORK. WE DISCUSSED THAT DR ANGULO WILL SEE THEM IN PATIENTS ROOM AND UPDATE THEM ON HIS CONDITION AND TEST RESULTS. THEN SRI OCHOABEHAVIORAL THERAPY COORDINATOR WILL BE WORKING WITH THEM ON PLANS FOR DISCHARGE AND HELPING TO SET UP WHAT THEY NEED AT HOME AND FOLLOW UP. JEREMY STATES SHE IS COMING AND WILL STAY TO MEET WITH MD. UPDATED DR ANGULO AND STAFF.
--- NOTE | 2018-08-01 10:14 | NUR ---
PATIENT IN CHAIR DAUGHTER IN ROOM. FRESH WATER GIVEN. CALL LIGHT IN REACH. NO FURTHER NEEDS AT THIS TIME.
--- NOTE | 2018-08-01 11:01 | NUR ---
PT UP IN BATHROOM SHOWERING WITH STUDENT NURSE AND CHINA DECORATOR AT THIS TIME. PT HAS VOIDED URINE AND HAD BM. NYSTATIN POWDER ALSO APPLIED AT THIS TIME TO SUSAN AREA/SCROTAL AREA.
--- NOTE | 2018-08-01 11:15 | NUR ---
PT UP AMBULATING WITH PHYSICAL THERAPY IN CHAIDEZ, PT WAS ABLE TO AMBULATE ONE PERSON ASSIST OUT OF ROOM INTO CHAIDEZ BEFORE NEEDING TO SIT AND REST.
--- NOTE | 2018-08-01 11:56 | NUR ---
NOTIFIED OF PT BLOOD GLUCOSE 404 FASTING PRE LUNCH. NEW ORDERS PLACED
--- NOTE | 2018-08-01 12:10 | NUR ---
AND SRI SKIN CARE CONSULTANT INTO DISCUSS IMAGING RESULTS AND PLAN OF CARE WITH PT, PATIENTS SPOUSE AND DAUGHTER.
--- NOTE | 2018-08-01 12:15 | NUR ---
FAXED CHART NOTES AND ORDER FOR FWW INCLUDING FACE SHEET, H AND P, PROG NOTES, PT AND OT EVAL AND NOTES TO IN HOME MED, AFTER TALKING WITH PT, , AND DAUGHTER. RECIEVED FAX CONFIRMATION.
--- NOTE | 2018-08-01 12:20 | NUR ---
PT ABLE TO ADMINISTER HIS OWN INSULINS.PRE LUNCH
--- NOTE | 2018-08-01 12:40 | NUR ---
PHONE NUMBERS: ZACH-- [phone] JEREMY--DAUGHTER [phone]
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
--- NOTE | 2018-08-01 14:15 | NUR ---
PATIENT SITTING IN CHAIR, IN ROOM. FRESH WATER GIVEN. CALL LIGHT IN REACH. NO FURTHER NEEDS AT THIS TIME.
--- NOTE | 2018-08-01 15:26 | NUR ---
PT REQUESTING ICE CREAM EDUCATION PROVIDED TO NOT APPROPRIATE FOR DIABETIC DIET, SUGER FREE ICE CREAM PROVIDED.
--- NOTE | 2018-08-01 17:37 | NUR ---
NOTIFIED OF PT BLOOD GLUCOSE OF 453, ORDERS TO GIVE THE 11 UNIT ORDERED AND HE WILL REVIEW PATIENT CHART
--- NOTE | 2018-08-01 17:42 | NUR ---
PATIENT SITTING ON SIDE OF BED. RN IN ROOM. FRESH WATER GIVEN. CALL LIGHT IN REACH. NO FURTHER NEEDS AT THIS TIME.
--- NOTE | 2018-08-01 19:30 | NUR ---
GIVEN REPORT FROM DAY SHIFT RNSYLVESTER. PATIENT HAS BEEN GRUMPY AND GRABS ON TO STAFFS ARMS. PATIENT RESTING IN BED WATCHING TV AT THIS TIME.
--- NOTE | 2018-08-01 21:44 | NUR ---
PATIENT'S FSBS WAS 416. CALLED PER PROTOCOL. PATIENT GIVEN THE 13UNITS HUMALOG AND 40UNITS LANTUS SUB-Q AND SAID WE WOUD RECHECK IN THE MORNING NO NEW ORDERS GIVEN. PM MEDS GIVEN. PATIENT LAYING IN BED AWAKE WATCHING TV.
--- NOTE | 2018-08-01 23:27 | NUR ---
PATIENT AWAKE JUST RESTING QUIETLY IN HIS BED, NO NEEDS EXPRESSED AST THIS TIME.
--- NOTE | 2018-08-02 | NUR ---
CHANGED BED LINEN, PATIENT'S GOWN SOAKED WITH URINE. PATIENT IS BACK IN BED. CALL LIGHT AND SIDE TABLE WITHIN REACH. BED ALARM ON.
--- NOTE | 2018-08-02 00:49 | NUR ---
PATIENT RESTING QUIETLY SUPINE, EYES CLOSED, RESPIRATIONS REGULAR AND EVEN. CALL LIGHT IN REACH, BED ALARM ON.
--- NOTE | 2018-08-02 03:14 | NUR ---
PATIENT JUST BACK FROM THE BATHROOM WITH LITHOPRESS OPERATOR.
--- NOTE | 2018-08-02 03:28 | NUR ---
PATIENT AWOKE AND CALLED WITH C/O 4/10 LEFT ARM PAIN. 2 PO NORCO. GIVEN.
--- NOTE | 2018-08-02 03:40 | NUR ---
PATIENT JUST HAD A LARGE INCONTINENECE OF URINE. LINENS CHANGED AND PATIENT WASHED AND NEW ATTENDS PLACED. WARM BLANKET GIVEN . PATIENT DENIES PAIN. CALL LIGHT IN REACH.
--- NOTE | 2018-08-02 06:09 | NUR ---
PT INITALLY REFUSED TO ALLOW THE LAB TO DRAW HIS BLOOD. THIS NURSE IN TO ROOM, AND EXPLAINED WHY IT WAS IMPORTANT, HE COMPLAINED OF THE NEEDLE, THE PAIN. CONTINUED TO COMPLAIN OF WANTING THE NEEDLE OUT AFTER IT WAS OUT.
--- NOTE | 2018-08-02 06:11 | NUR ---
PATIENT HAS BEEN RESTING QUIETLY MOST OF THE EXCEPT FOR HIS FREQUENT EPISODES OF URINARY INCONTINENCE, WHICH AT TIMES HAS NEEDED A COMPLETE BED CHANGE. CURRENTLY PATIENT IS RESING QUIETLY, EYES CLOSED, RESPIRATIONS REGULAR AND EVEN AT 16 AT THIS TIME. LAB HAS ALREADY BEEN IN AND HE HAS REFUSED TO LET LAB DRAW HIS BLOOD TODAY. CHARGE NURSE ADIN IS GOING TO GO IN TO TRY AND TALK HIM INTO GETTING HIS BLOOD DRAWN. PATIENT'S IV FLUSHES WELL. CALL LIGHT IN REACH.
--- NOTE | 2018-08-02 06:14 | NUR ---
CHARGE NURSE WAS ABLE TO TALK PATIENT INTO GETTING BLOOD DRAWN. BLOOD WAS DRAWN.
--- NOTE | 2018-08-02 07:45 | NUR ---
UPON ENTERING ROOM, PT APPEARS TO BE SLEEPING IN BED. RESPIRATIONS EVEN AND UNLABORED. BLOOD GLUCOSE CHECKED - 260 MG/DL. PT COMPLAINS OF NAUSEA AND STATES HE FEELS "CRUMMY". RN ADMINISTERED PRN ZOFRAN PER ORDER. SKIN PALE, WARM, AND DRY. BREAKFAST BROUGHT TO PT PER PT REQUEST. PT DENIES ANY PAIN AT THIS TIME. NO OTHER PT REQUESTS. CALL LIGHT IN REACH.
--- NOTE | 2018-08-02 08:06 | NUR ---
ADMIN ZOFRAN IV 4MG FOR REPORTS OF NAUSEA. PT AWAKE, ALERT AND ORIENTED X3. PT IS ON RA, RESP EVEN AND NON LABORED. PT DENIES NEEDS AT THIS TIME. WILL CHECK BACK WITH HIM IN SHORT WHILE TO SEE IF NAUSEA IMROVES.
--- NOTE | 2018-08-02 08:39 | NUR ---
PATIENT REFUSED TO GET UP TO CHAIR DUE TO FEELING NAUSEOUS, RN NOTIFIED. DARIUS ROJAS IN ROOM. CALL LIGHT IN REACH. NO FURTHER NEEDS AT THIS TIME.
--- NOTE | 2018-08-02 09:00 | NUR ---
PT RESTING CHAIR UPON ENTERING ROOM. MEDICATIONS ADMINISTERED. PT ABLE TO TAKE PO MEDS INDEPENDENTLY AND SWALLOWS WITHOUT DIFFICULTY. ATTEMPTED PT EDUCATION ON MEDICATION REGIMEN AND PT REFUSED, STATING THAT THE DOCTOR WAS HANDLING HIS MEDS AND HE WILL TAKE WHATEVER IS ORDERED. NYSTATIN POWDER HELD UNTIL PT RECEIVES PERSONAL HYGIENE CARE. PT CONTINUES TO COMPLAIN OF NAUSEA AND NOT FEELING WELL. EMESIS BAG PLACED ON BEDSIDE TABLE. PT OFFERED SUGAR-FREE JELL-O, PT ACCEPTED. NO OTHER PT REQUESTS. CALL LIGHT IN REACH.
--- NOTE | 2018-08-02 10:00 | NUR ---
PT RESTING IN CHAIR UPON ENTERING ROOM. VITAL SIGNS WNL. PT DENIES NEED TO USE BATHROOM. DEPEND CHANGED, PT ABLE TO STAND FROM CHAIR WITH TWO-PERSON ASSIST AND FWW DURING CHANGING. SUSAN-CARE ATTEMPTED, PT YELLED TO STOP SOON A WARM WIPE CONTACTED HIS SKIN. NYSTATIN POWDER APPLIED. BED SHEETS CHANGED. PT REQUESTED JUICE, PT EDUCATED ON HIGH SUGAR CONTENT OF JUICE AND OFFERED CRYSTAL LIGHT, PT ACCEPTED. NO OTHER REQUESTS. CALL LIGHT IN REACH.
--- NOTE | 2018-08-02 10:22 | NUR ---
PATIENT IN CHAIR. DEPENDS CHANGED. SUSAN CARE DONE. POWDER PUT ON BY FISCAL ACCOUNTING CLERK. LINENS CHANGED. CALL LIGHT IN REACH. NO FURTHER NEEDS AT THIS TIME. ARIANE REFUSED SHOWER, HAD ONE YESTURDAY.
--- NOTE | 2018-08-02 13:30 | NUR ---
RECIEVED A CALL THIS AM FROM THE PT STATING SHE IS JUST TRYING TO MAKE SURE EVERYTHING THAT WE REQUIRE IS IN PLACE FOR HIM TO COME HOME FROM THE HOSPITAL--SHE IS GOING TO CLEAN A ROOM FOR THE HOSPITAL BED WE REQUIRE. I STOPPED HER AND STATED THAT WE ARE NOT REQUIRING THEM TO HAVE A HOSPITAL BED FOR HIM. HE SHOULD BE ABLE TO RETURN HOME AND SLEEP IN [place] OR WHATEVER HE HAD BEEN SLEEPING IN AND THAT WE MADE NO REQUIREMENTS TO HAVE A HOSPITAL BED IN PLACE FOR HIM TO BE DISCHARGED. SHE STATED UNDERSTANDING AFTER I AGAIN EXPLAINED THIS TO HER. SHE DID STATE THAT SHE WOULD BE IN IN AN HOUR OR SO TO SEE PT. I THEN RECIEVED A PHONE CALL FROM THE PT SON BEAN WHO DOES NOT LIVE LOCALLY REGARDING US STATING THAT WE WERE REQUIRING SPECIFIC INSTRUCTIONS FOR A BED ETC. I AGAIN EXPLAINED TO HIM THAT THE PT IS MORE THAN OK TO GO HOME AND SLEEP HOWEVER HE WAS SLEEPING PRIOR TO COMING TO THE HOSPITAL. ASSURED HIM THAT THERE WAS NO SPECIAL INSTRUCTIONS FOR THEM TO DO ANYTHING DIFFERENT ABOUT HIS SLEEPING. HE THEN STATED THEY WERE SETTING UP THE BACK BEDROOM WITH A BED AND HE COULD STAY THERE. THEN HE VOICED CONCERN ABOUT HIM NOT GETTING OUT OF BED AND JUST LAYING THERE AND NOT TAKING CARE OF HIMSELF IF THEY DID THAT. I AGAIN TOLD HIM HE COULD GO HOME AND SLEEP AND CARE FOR HIMSELF HE HAD BEEN. HE THEN WAS CONCERNED THAT IF HE SLEPT IN HIS RECLINER HE MAY GET BED SORES, I ASKED IF HE HAD THEM FROM BEFORE HE CAME TO THE HOSPITAL HE HAD BEEN SLEEPING IN HIS RECLINER, HE STATED NO. IN THE END INFORMED BOTH AND SON THAT IT IS OK FOR THE PT TO RETURN TO WHATEVER HE WAS DOING TO SLEEP BEFORE AND THERE WERE NO SPECIFIC DIRECTIONS FOR HIS SLEEPING IN A SPECIAL BED. THEY BOTH STATED UNDERSTANDING AT THIS POINT.
--- NOTE | 2018-08-02 15:24 | NUR ---
PATIENT IN CHAIR. DEPENDS CHANGED. CALL LIGHT IN REACH. NO FURTHER NEEDS AT THIS TIME.
--- NOTE | 2018-08-02 17:39 | NUR ---
SPOKE TO DR. RG REGARDING PT'S MOST RECENT BLOOD SUGAR LEVEL OF 375. ALSO COMMUNICATED TO PROVIDER THAT PT PULLED OUT IV AND IS REFUSING TO HAVE A NEW IV PLACED AT THIS TIME. NO NEW ORDERS AT THIS TIME. CALL LIGHT WITHIN REACH OF PT. PT CLOSE TO RN STATION.
--- NOTE | 2018-08-02 17:46 | NUR ---
PATIENT IN BED. RN IN ROOM. FRESH WATER GIVEN. CALL LIGHT IN REACH. NO FURTHER NEEDS AT THIS TIME.
--- NOTE | 2018-08-02 18:22 | NUR ---
PT CONFUSED AT TIMES. ON RA. 1 P ASSIST WITH WALKER AND GAIT BELT. TOLERATING ADA DIET. BLOOD SUGARS TRENDING HIGH 300'S; IMPROVING.
--- NOTE | 2018-08-02 19:47 | NUR ---
PATIENT RESTING IN BED QUIETLY. DENIES PAIN WATCHING TV.
--- NOTE | 2018-08-03 04:00 | NUR ---
PATIENT HAS DRY ATTENDS AT THIS TIME AND HAS ACTUALLY THANK YOU FOR TAKING CARE OF HIM. PATIENT UP IN BED WATCHING TV AT THIS TIME.
--- NOTE | 2018-08-03 05:30 | NUR ---
PATIENT HAS HAD MOMENTS OF GRUMPINESS AND TROWING THINGS AND OTHER MOMENTS OF THANKING STAFF FOR THEIR HELP. IV FLUSHES WELL, LUNGS CLEAR. PATIENT HAS HAD MULTIPLE EPISODES OF URINARY INCONTINENCE AND WILL AASSIST IN CHANGING HIS ATTENDS WHILE IN BED, BUT HIS SCROTUM IS RED AND SORE, USING BARRIER CREAM AND NYSTOP. PATIENT WAS JUST DRY WHEN I CHECKED PATIENT WATCHING TV AT THIS TIME.
--- NOTE | 2018-08-03 07:25 | NUR ---
pt resting supine in bed, eyes closed and respirations even and unlabored. Pt appears to be sleeping comfortably. Call light and h20 in reach. Report received from DON Blanchard.
--- NOTE | 2018-08-03 08:39 | NUR ---
pt resting in bed, assisted up to chair for breakfast, pt eats 100% of breakfast. Am assessment completed, am meds administered. Pt sitting reclined in chair watching tv with chair alarm on. Pt's family at bedside, call light and h20 in reach.
--- NOTE | 2018-08-03 10:24 | NUR ---
CARE CONFERENCE ATTENDING: PT, PTS ZACH, DR RG, MYSELF CASE MANAGEMENT. DR RG DISCUSSED WITH PT AND THAT PT BLOOD SUGARS ARE COMING UNDER CONTROL AND WILL BE NEEDING CLOSE MEDICAL MONITORING OF THAT. ALSO THAT NOW THAT HIS ACUTE MEDICAL NEEDS ARE MET THAT PHYSICAL THERAPY IS SAYING THE PT IS NOT SAFE TO RETURN HOME WITHOUT SOME REHAB TO BECOME MORE STABLE WITH GAIT AND AMBULATION. HE TOLD PT AND ZACH THAT THE PT WOULD NEED TO GO TO A CUSTODIAL FACILITY FOR REHAB. PT STATES THAT IS FINE. JUST NEEDS TO KNOW OPTIONS. I TOLD ZACH THAT THERE IS ONE OPTION IN [place] AND THAT IS [facility], AND ONE IN [facility], ONE IN [place], AND 2 IN [facility] AND 1 IN [place], ZACH SAID SHE WANTS HIM TO GO HERE IN [place] TO [facility]. I TALKED WITH HER ABOUT WHAT MEDICARE PAYS AND HOW LONG, SHE STATES UNDERSTANDING. WE TALKED ABOUT 20 DAYS FULL COVERAGE AND THEN THE NEXT DAYS 21-100 THEY PAY AT 80% AND EITHER A SECONDARY INSURANCE OUR OUT OF POCKET EXPENSE IF HE IS THERE THAT LONG. SHE AGAIN STATES UNDERSTANDING. SHE DOES VERBALIZE THAT ANY INFORMATION ABOUT THE PT SHOULD BE GIVEN TO HER FIRST AND THEN THE CHILDREN JEREMY AND BEAN. WE ACKNOWLEDGED THIS. PT STATES HE IS FINE GOING ANYWHERE--"I JUST WANT OFF MY TAILBONE." INFORMED THE NURSING STAFF THAT HE NEEDS SOME ASSISTANCE.
--- NOTE | 2018-08-03 10:33 | NUR ---
FAXED CHART NOTES TO [facility] INCLUDING FACE SHEET, ER NOTES AND SUMMARY, H AND P, PROG NOTES FOR LAST 3 DAYS, PT AND OT EVAL AND NOTES. RECIEVED FAX CONFIRMATION. ALSO CALLED AND LEFT MESSAGE FOR [facility]AS[facility] CO[facility] AT T.
--- NOTE | 2018-08-03 13:10 | NUR ---
RECIEVED A MESSAGE FROM [facility] THAT THEY WILL ACCEPT PT THIS AFTERNOON, BUT THEY DO NOT HAVE TRANSPORTATION, SO IT WILL NEED TO BE ARRANGED THROUGH [facility]. TALKED WITH ABOUT THIS AND SHE STATES UNDERSTANDING.
--- NOTE | 2018-08-03 13:19 | NUR ---
PT SITTING IN CHAIR, VISITING. PT SLOW TO RESPOND, BUT PLEASANT AND ON POINT WITH RESPONSES. FAMILY'S DEV OPS ENGINEER HAS MADE CONTACT, WILL CONTINUE TO BE AVAILABLE NEEDED
[2018-08-03] MEDS ORDERED: ASPIRIN EC81 MG PO (13:53)
[2018-08-03] MEDS ORDERED: LANTUS100 UNITS/ SUB-Q (13:53)
[2018-08-03] MEDS ORDERED: VITAMIN B-1100 M1 PO (13:54)
--- NOTE | 2018-08-03 14:14 | NUR ---
FAXED ORDERS TO [facility] INCLUDING [facility]. RECIEVED FAX CONFIRMATION. TALKED WITH PT ZACH ABOUT THIS SHE STATES UNDERSTANDING AND THAT [facility] TAKE PT TO [facility] FOR US.
[2018-08-03] MEDS ORDERED: CYMBALTA20 MG PO (14:37)
[2018-08-03] MEDS ORDERED: NYSTOP60 GM TOP (14:40)
[2018-08-03] MEDS ORDERED: FLOMAX0.4 MG PO (14:41)
[2018-08-03] MEDS ORDERED: TYLENOL325 MG PO (14:42)
[2018-08-03] MEDS ORDERED: FUROSEMIDE40 MG PO (14:43)
[2018-08-03] MEDS ORDERED: NOVOLOG100 UNIT/2 SUB-Q (14:50)
--- NOTE | 2018-08-03 14:56 | NUR ---
pt resting supine in bed, with hob elevated. Pt is compliant with care at this time. Assessment completed. CLEO Mueller in to assist pt in preparing for discharge. IV removed with canulla intact from right FA and pressure dsg applied.
--- NOTE | 2018-08-03 15:00 | NUR ---
CAME TO THE NURSES STATION ASKING FOR CLARIFICATION OF WHAT THE PT IS GOING TO [facility] FOR. AGAIN EXPLAINED TO HER THAT IT IS FOR REHAB, NOT FOR PERMANENT STAY LIKE SHE IS FEELING LIKE IT IS. SHE STATES HER KIDS ARE FEELING LIKE THIS IS A PERMANENT MOVE AND I EXPLAINED IT IS JUST FOR HIM TO REHAB SO THAT HE HAS A SAFE DC TO HOME. I ALSO OFFERED TO CALL HER SON BEAN AND TALK TO HIM ABOUT IT, SHE SAID THAT WOULD BE GREAT AND SHE GAVE ME HIS PHONE # [phone]. I RETURNED TO THE OFFICE AND CALLED BEAN AND WE TALKED ABOUT THE FACT THAT HIS FATHER GOING TO A REHAB FACILITY IS STRICTLY TO GET STRONGER SO THAT HE WILL BE ABLE TO RETURN HOME SAFELY WITHOUT HURTING HIMSELF OR HIS . EXPLAINED THAT PT ARE GENERALLY IN REHAB ANYWHERE FROM 4-5 DAYS TO SEVERAL WEEKS A LOT DEPENDS ON THE PT AND THEIR PARTICIPATION. ALSO TOLD HIM TO BE SURE TO HAVE HIS MOTHER ASK THEM TO SET UP HOME HEALTH FOR PT WHEN HE IS PREPARING TO RETURN HOME. HE STATED UNDERSTANDING OF THIS AND SAID HE FELT MUCH BETTER ABOUT THIS NOW. ALSO HAD A CONVERSATION WITH HIM ABOUT THE CONFUSION THAT HIS MOTHER HAS BEEN HAVING HERE. HE STATED THIS HAS BEEN ON-GOING FOR A SHORT WHILE AND HE AND HIS SISTER WERE AWARE OF IT. THEY THINK IT IS STRESS RELATED DUE TO FATHER BEING IN THE HOSPITAL. HE SAID SHE HAS BEEN TO HER DR ABOUT THIS ALREADY. I THEN RECIEVED A PHONE CALL FROM THE NURSES TO COME TALK TO THE PT SHE STATES SHE IS UNSURE OF WHY HE IS GOING TO REHAB. I EXPLAINED AGAIN TO HER THE REASONS, SHE STATED YES THATS RIGHT. ALSO STATED HER KIDS JUST DON'T UNDERSTAND. I DID SAY TO HER THAT I HAD JUST TALKED WITH BEAN ABOUT THE REHAB AND SHE WAS HAPPY THAT HE UNDERSTANDS BETTER. ALSO TOLD ZACH THAT HER DAUGHTER CAN CALL AND TALK WITH ME IF THAT WILL MAKE HER FEEL BETTER ALSO. JEREMY ALREADY HAS MY PHONE #.
--- NOTE | 2018-08-03 15:05 | NUR ---
PATIENT IS DRESS AND THE FINAL VITAL SIGNS WERE OBTAINED PRIOR TO DISCHARGE FROM THE UNIT.
--- NOTE | 2018-08-04 08:46 | NUR ---
In to see patient and for diabetes education follow-up prior to discharge on 08/03/17. was unavailable at initial assessment. denies concerns with helping Nikita care for diabetes when he returns home. Discussed the possibility of a continuous glucose monitor. She has seen them advertised and plans to look into them. She also plans to take a role in making sure he takes his medication including insulin. Discussed outpatient diabetes education services and provided with contact information. Pt and denies other concerns.
== END 2018-08-03 15:14 | DRG 637 ==
LOC: ED 17:59 → MS 20:16 → CCU 20:16 → MS 07-30 12:40
PROVIDERS: ADMIT Internal Medicine
DX: E11.10 Type 2 diabetes mellitus with ketoacidosis without coma (principal); G93.41 Metabolic encephalopathy; I63.9 Cerebral infarction, unspecified; I10 Essential (primary) hypertension; I48.91 Unspecified atrial fibrillation; E78.5 Hyperlipidemia, unspecified; N40.0 Benign prostatic hyperplasia without lower urinary tract symptoms; E66.9 Obesity, unspecified; G47.30 Sleep apnea, unspecified; M16.11 Unilateral primary osteoarthritis, right hip; R26.81 Unsteadiness on feet; F10.21 Alcohol dependence, in remission; Z68.28 Body mass index [BMI] 28.0-28.9, adult; Z88.2 Allergy status to sulfonamides; Z79.4 Long term (current) use of insulin; Z79.891 Long term (current) use of opiate analgesic; Z79.899 Other long term (current) drug therapy; Z87.891 Personal history of nicotine dependence; Z87.820 Personal history of traumatic brain injury; Z91.19 Patient's noncompliance with other medical treatment and regimen
CPT/HCPCS: 36415; 70450; 71045; 73502; 74176; 80048; 80053; 81001; 82010; 82803; 83735; 84100; 85025; 93005; 93010; 96361; 96374; 97116; 97162; 97166; 97530; 99285-25; C9113; J1650; J1815; J2405; J7030; J7042